=== PATIENT | female | born 1955 | race Caucasian/White ===

== ENCOUNTER 2016-07-05 07:34 | Inpatient (IN) | payer BC ==
[2016-06-07 08:09] VITALS: BMI 42.0
[2016-07-05] MEDS ORDERED: Sodium Chloride 0.9% 60 ML IV ONE (08:23)
[2016-07-05] MEDS ORDERED: Clindamycin 300 mg/2 ml Inj ONE (08:24)
[2016-07-05] MEDS ORDERED: (Novolin R) Insulin Human Regular 100 units/ml vial ONE ×2 (08:40→16:40)
[2016-07-05] MEDS ORDERED: (Novolin R) Insulin Human Regular 100 units/ml vial IV ONE (08:53)
[2016-07-05] MEDS ORDERED: Lidocaine Hydrochloride 5 ML INJ ONE (09:17)
[2016-07-05] MEDS ORDERED: Rocuronium 10 mg/ml (10 ml) ONE (09:17)
[2016-07-05] MEDS ORDERED: Midazolam 2 MG/2 ML VIAL ONE (09:17)
[2016-07-05] MEDS ORDERED: Succinylcholine Chloride 20 mg/ml Syr (5 ml) IV ONE (09:17)
[2016-07-05] MEDS ORDERED: Propofol 10 mg/ml Inj (20 ML) ONE (09:17)
[2016-07-05] MEDS ORDERED: Sodium Chloride 0.9% 1,000 ML IV ONE (09:18)
[2016-07-05] MEDS ORDERED: Sodium Chloride 0.9% 100 ML IV ONE (09:33)
[2016-07-05] MEDS ORDERED: Phenylephrine 10 mg/ml Inj ONE (10:05)
[2016-07-05] MEDS: Vancomycin 1 g Inj ONE ×4 (10:16→11:33)
[2016-07-05] MEDS: Bupivacaine Liposomal Inj 20 ml INFIL ONE ×2 (10:18→11:30)
[2016-07-05] MEDS ORDERED: Lactated Ringer's 1,000 ML IV ONE ×2 (10:19)
[2016-07-05] MEDS: Bacitracin 150,000 UNIT in Sodium Chloride 0.9% Irrig 3,000 ML IR SCH (11:30)
[2016-07-05] MEDS ORDERED: (Novolin 70/30) NPH/Regular 70/30 Units/ml 10 ml vial SC SCH (11:30)
[2016-07-05] MEDS ORDERED: Neostigmine Methylsulfate 3mg/3ml Syringe IV ONE (11:55)
[2016-07-05] MEDS ORDERED: HYDROmorphone 0.5 mg/0.5 ml ISec IVP PRN (12:09)
--- NOTE | 2016-07-05 12:44 | CP.PCM.HP ---
History of Present Illness - History of Present Illness History of Present Illness: 61F with right knee DJD failed conservative mgmt and elective for TKR. Medical clearance on chart, reviewed. PAT reviewed PMH: CAD s/p CABG 2006 and stenting 2006, 2008 DM, poorly controlled but HgA1c down to 11.8 from 13.9, BP in SDS 299, given insulin LBP, spinal stimulator Depression, anxiety asthma PE 2006, was on anticoag for 2-3 years, now only on aspirin 325mg daily PSH: spinal fusion cholecysectomy Present on Admission - Present on Admission Any Indicators Present on Admission: Yes History of DVT/PE: Yes Review of Systems - Review of Systems All systems: reviewed and no additional remarkable complaints except - Musculoskeletal Musculoskeletal: As Per HPI Past Patient History - Past Medical History & Family History Past Medical History?: Yes Pertinent Family History: sisters and brother CAD - Past Social History Smoking Status: Never Smoked - CARDIAC Hx Cardiac Disorders: Yes Hx Hypertension: Yes Other/Comment: HX: CARDIAC BYPASS,CABG, STENTSX4 - PULMONARY Hx Respiratory Disorders: Yes Hx Asthma: Yes (NEVER HOSPITALIZED) - NEUROLOGICAL Hx Neurological Disorder: No - HEENT Hx HEENT Problems: No - RENAL Hx Chronic Kidney Disease: No - ENDOCRINE/METABOLIC Hx Endocrine Disorders: Yes Hx Diabetes Mellitus Type 2: Yes - HEMATOLOGICAL/ONCOLOGICAL Hx Blood Disorders: No Hx Blood Transfusions: No Hx Blood Transfusion Reaction: No - INTEGUMENTARY Hx Dermatological Problems: No - MUSCULOSKELETAL/RHEUMATOLOGICAL Hx Musculoskeletal Disorders: Yes Hx Arthritis: Yes Hx Back Pain: Yes Hx Herniated Disk: Yes Hx Osteoarthritis: Yes Hx Osteoporosis: Yes Other/Comment: HX:" IMPLANTED SPINAL CORD STIMULATOR IMPLANTED LEFT BUTTOCKS - WIRES TO LOWER BACK" - GASTROINTESTINAL Hx Gastrointestinal Disorders: Yes Hx Gall Bladder Disease: Yes - GENITOURINARY/GYNECOLOGICAL Hx Genitourinary Disorders: Yes Other/Comment: HX: URINARY FREQUENCY - PSYCHIATRIC Hx Psychophysiologic Disorder: Yes Hx Anxiety: Yes Hx Depression: Yes Hx Schizophrenia: Yes Hx Substance Use: No - SURGICAL HISTORY Hx Surgeries: Yes Hx Angiogram: Yes Hx Cholecystectomy: Yes Hx Coronary Stent: Yes (X4) Hx Orthopedic Surgery: Yes - ANESTHESIA Hx Anesthesia: Yes Hx Anesthesia Reactions: Yes (VOMITING) Hx Malignant Hyperthermia: No Has any member of the family had a problem w/ anesthesia?: No Meds Allergies/Adverse Reactions: Allergies Allergy/AdvReac Type Severity Reaction Status Date / Time Penicillins Allergy Intermediate RASH Verified 06/07/16 08:13 morphine AdvReac Intermediate VOMITING Verified 06/08/16 09:33 Physical Exam - Constitutional Appears: Well, No Acute Distress - Head Exam Head Exam: ATRAUMATIC, NORMAL INSPECTION - ENT Exam ENT Exam: Mucous Membranes Moist - Respiratory Exam Respiratory Exam: NORMAL BREATHING PATTERN - Extremities Exam Additional comments: RLE: +DP/PT pulses, calves sfot NT neg homans +ROM ankle/toes, sensation intact imaging at outside facity, patient has disc - Neurological Exam Neurological exam: Alert, Oriented x3 - Psychiatric Exam Psychiatric exam: Normal Affect, Normal Mood - Skin Skin Exam: Dry, Intact, Normal Color, Warm Results - Vital Signs Recent Vital Signs: Last Vital Signs Temp Pulse 78 07/05/16 07:51 Resp BP Pulse Ox - Labs Labs: Laboratory Results - last 24 hr 07/05/16 09:58 Blood Type A POSITIVE Antibody Screen Negative Assessment & Plan (1) Primary osteoarthritis of right knee Assessment and Plan: NPO for TKR Status: Acute (2) Diabetes Assessment and Plan: cont home meds, medical consulation Status: Acute (3) CAD (coronary artery disease) Assessment and Plan: resume aspirin pod@1 Status: Chronic (4) HTN (hypertension) Assessment and Plan: cont home meds Status: Chronic (5) GERD (gastroesophageal reflux disease) Assessment and Plan: cont home meds Status: Chronic (6) Depression Assessment and Plan: cont home meds Status: Chronic Decision To Admit - Pt Status Changed To: Hospital Disposition Of: Inpatient - Admit Certification Admit to Inpatient:: After my assessment, the patient will require hospitalization for at least two midnights. This is because of the severity of symptoms shown, intensity of services needed, and/or the medical risk in this patient being treated as an outpatient. - InPatient: Physician Admission Certification:: After my assessment, the patient will require hospitalization for at least two midnights. This is because of the severity of symptoms shown, intensity of services needed, and/or the medical risk in this patient being treated as an outpatient. - . Bed Request Type: Telemetry (post op monitoring)
--- NOTE | 2016-07-05 13:33 | RAD ---
PROCEDURE: Right Knee Radiographs. HISTORY: s/p TKR, pt in pacu COMPARISON: None. FINDINGS: BONES: Status post total knee replacement. No osseous fracture. Expected postsurgical changes in soft tissues of distal femur infrapatellar region. Drainage catheter present. JOINTS: As above JOINT EFFUSION: None. OTHER FINDINGS: None. IMPRESSION: Status post right TKR .
[2016-07-05] MEDS ORDERED: Bupivacaine 0.5% Inj(30mL) ONE (13:52)
--- NOTE | 2016-07-05 14:12 | PCM.ANESB7 ---
Adductor Canal Block - Adductor Canal Block Date of Procedure: 07/05/16 Procedure Performed: Adductor Canal Block Right - Procedure Adductor Canal Block: The procedure was explained to the patient that it is for the post-operative pain management. Consent was obtained after a thorough discussion with the patient regarding the benefits and possible complications of local anesthetic adductor canal block of the femoral nerve. Standard monitors, as defined by the ASA, were applied to the patient. Time-out was held with the circulating nurse to confirm the appropriate block. After applying supplemental oxygen and administering IV Sedation as needed, the patient was placed in supine position with and the operative leg was flexed slightly at the knee and externally rotated as needed, and was kept anatomically stable. The mid-thigh of the RIGHT lower extremity was exposed. The ultrasound transducer was then applied transversely along the medial aspect, about midway down the thigh and the femoral artery and vein were identified in appropriate relation with the sartorius muscle. At this time, the femoral nerve was visualized lateral to the femoral artery within the canal. After thorough identification, this area area was prepped with Chloroprep solution three times and 1 % Lidocaine was injected subcutaneously for topical anesthesia. At this point, a #22 gauge Stimuplex 4-inch needle was inserted in-plane in a [id number] orientation, and advanced toward the saphenous nerve. Advancement was performed carefully under direct ultrasound visualization. . After negative aspiration, _5 cc of _0.5 % bupivicaine._was injected and this was followed with 15 cc of _0.5 % bupivicaine. Under ultrasound guidance the local anesthetics were observed spreading around the saphenous nerve. The needle was removed intact and sterile dressing was applied. The patient had stable vital signs, was conscious and in no apparent distress. The patient tolerated the adductor nerve block well with stable vital signs, no parasthesias, complaints, or sequalae. ,
--- NOTE | 2016-07-05 14:40 | CP.PCM.CON ---
History of Present Illness - History of Present Illness History of Present Illness: Medical Consult Note- Sally Christyenriqueta PGY2 Patient is a 61 year old female with PMHx of CAD s/p CABG, depression, DM, HTN, asthma, hx of PE, lulbar radiculopathy, and GERD. Patient is POD #0 s/p right total knee replacement surgery for DJD that failed outpatient treatment. The patient was seen and evaluated in the PACU at 1515. Patient was alert, awake and oriented x3 and answering questions appropriately. Patient currently denies pain and states that she was given pain medication recently. She states that she uses Albuterol inhaler at home about 3 times per day for her symptoms. Patient also uses insulin for control of her diabetes. Patient's vitals were within normal limits at time of exam. Currently denies fever, nausea, vomiting , chest pain, leg pain, headache, and shortness of breath. Medicine consult was placed for medical management of this patient. Will follow up blood work tomorrow morning. Will follow patient while in hospital. Thank you for this consult. PMHx: CAD s/p CABG, depression, DM, HTN, asthma, hx of PE in 2006, lulbar radiculopathy with spinal stimulator in place, and GERD Surgical Hx: spinal fusion, cholecystectomy Allergies: penicillin, morphine Review of Systems - Constitutional Constitutional: As Per HPI. absent: Headache - EENT Eyes: As Per HPI Ears: As Per HPI. absent: Dizziness Nose/Mouth/Throat: As Per HPI. absent: Sore Throat - Cardiovascular Cardiovascular: As Per HPI. absent: Chest Pain, Dyspnea, Lightheadedness, Palpitations - Respiratory Respiratory: As Per HPI. absent: Dyspnea - Gastrointestinal Gastrointestinal: As Per HPI. absent: Abdominal Pain, Nausea, Vomiting - Genitourinary Genitourinary: As Per HPI - Musculoskeletal Musculoskeletal: As Per HPI. absent: Back Pain, Radiating Pain into Limb - Integumentary Integumentary: As Per HPI - Neurological Neurological: As Per HPI. absent: Headaches, Paresthesias, Weakness - Psychiatric Psychiatric: As Per HPI. absent: Depression Past Patient History - Past Medical History & Family History Past Medical History?: Yes - Past Social History Smoking Status: Never Smoked - CARDIAC Hx Cardiac Disorders: Yes Hx Hypertension: Yes Other/Comment: HX: CARDIAC BYPASS,CABG, STENTSX4 - PULMONARY Hx Respiratory Disorders: Yes Hx Asthma: Yes (NEVER HOSPITALIZED) - NEUROLOGICAL Hx Neurological Disorder: No - HEENT Hx HEENT Problems: No - RENAL Hx Chronic Kidney Disease: No - ENDOCRINE/METABOLIC Hx Endocrine Disorders: Yes Hx Diabetes Mellitus Type 2: Yes - HEMATOLOGICAL/ONCOLOGICAL Hx Blood Disorders: No Hx Blood Transfusions: No Hx Blood Transfusion Reaction: No - INTEGUMENTARY Hx Dermatological Problems: No - MUSCULOSKELETAL/RHEUMATOLOGICAL Hx Musculoskeletal Disorders: Yes Hx Arthritis: Yes Hx Back Pain: Yes Hx Herniated Disk: Yes Hx Osteoarthritis: Yes Hx Osteoporosis: Yes Other/Comment: HX:" IMPLANTED SPINAL CORD STIMULATOR IMPLANTED LEFT BUTTOCKS - WIRES TO LOWER BACK" - GASTROINTESTINAL Hx Gastrointestinal Disorders: Yes Hx Gall Bladder Disease: Yes - GENITOURINARY/GYNECOLOGICAL Hx Genitourinary Disorders: Yes Other/Comment: HX: URINARY FREQUENCY - PSYCHIATRIC Hx Psychophysiologic Disorder: Yes Hx Anxiety: Yes Hx Depression: Yes Hx Schizophrenia: Yes Hx Substance Use: No - SURGICAL HISTORY Hx Surgeries: Yes Hx Angiogram: Yes Hx Cholecystectomy: Yes Hx Coronary Stent: Yes (X4) Hx Orthopedic Surgery: Yes - ANESTHESIA Hx Anesthesia: Yes Hx Anesthesia Reactions: Yes (VOMITING) Hx Malignant Hyperthermia: No Has any member of the family had a problem w/ anesthesia?: No Meds Allergies/Adverse Reactions: Allergies Allergy/AdvReac Type Severity Reaction Status Date / Time Penicillins Allergy Intermediate RASH Verified 06/07/16 08:13 morphine AdvReac Intermediate VOMITING Verified 06/08/16 09:33 - Medications Medications: Current Medications Acetaminophen (Tylenol 325mg Tab) 650 mg PO Q4 PRN PRN Reason: Fever 101 degrees fahrenheit Alprazolam (Xanax) 1 mg PO TID [facility] Amlodipine Besylate (Norvasc) 10 mg PO DAILY [facility] Aspirin (Ecotrin) 325 mg PO DAILY [facility] Benztropine Mesylate (Cogentin) 1 mg PO HS [facility] Docusate Sodium (Colace) 100 mg PO BID [facility] Enoxaparin Sodium (Lovenox) 30 mg SC Q12H [facility] Gabapentin (Neurontin) 800 mg PO TID [facility] Home Med (Ropinirole Hcl [Requip]) 1 mg PO HS [facility] Hydromorphone HCl (Dilaudid) 0.5 mg IVP Q10M PRN PRN Reason: Pain, severe (8-10) Last Admin: 07/05/16 13:37 Dose: 0.5 mg Hydromorphone HCl (Dilaudid) 0.5 mg IVP Q4H PRN PRN Reason: Pain, severe (8-10) Clindamycin Phosphate (Cleocin) 600 mg in 50 mls @ 102 mls/hr IVPB Q8H [facility] Stop: 07/05/16 23:30 Sodium Chloride (Sodium Chloride 0.9%) 1,000 mls @ 80 mls/hr IV .[id number] [facility] Insulin Aspart (Novolog) 15 unit SC TIDAC [facility] Insulin Glargine (Lantus) 50 unit SC HS [facility] Insulin Human Regular (Novolin R) 0 unit SC ACHS [facility] PRN Reason: Protocol Isosorbide Mononitrate (Imdur) 30 mg PO DAILY [facility] Metformin HCl (Glucophage) 500 mg PO BIDBS [facility] Metoprolol Succinate (Toprol Xl) 100 mg PO DAILY [facility] Mirtazapine (Remeron) 45 mg PO HS [facility] Oxycodone/Acetaminophen (Percocet 5/325 Mg Tab) 1 tab PO Q4 PRN PRN Reason: Pain, moderate (4-7) Stop: 07/08/16 12:27 Pantoprazole Sodium (Protonix Ec Tab) 40 mg PO DAILY [facility] Risperidone (Risperdal Tab) 3 mg PO DAILY [facility] Rosuvastatin Calcium (Crestor) 20 mg PO HS [facility] Venlafaxine HCl (Effexor Xr) 150 mg PO DAILY [facility] Physical Exam - Constitutional Appears: Non-toxic, No Acute Distress - Head Exam Head Exam: ATRAUMATIC, NORMOCEPHALIC - Eye Exam Eye Exam: EOMI, Normal appearance - ENT Exam ENT Exam: Mucous Membranes Moist - Neck Exam Neck exam: Positive for: Normal Inspection - Respiratory Exam Respiratory Exam: Clear to Auscultation Bilateral, NORMAL BREATHING PATTERN. absent: Accessory Muscle Use, Chest Wall Tenderness, Rales, Rhonchi, Wheezes, Respiratory Distress - Cardiovascular Exam Cardiovascular Exam: REGULAR RHYTHM, +S1, +S2. absent: Irregular Rhythm, Systolic Murmur - GI/Abdominal Exam GI & Abdominal Exam: Normal Bowel Sounds, Soft. absent: Distended, Firm, Guarding, Tenderness - Extremities Exam Extremities exam: Positive for: pedal edema. Negative for: tenderness Additional comments: 2+ pitting edema left lower leg Right leg wrapped in dressing, drain in place with serosangenous fluid - Neurological Exam Neurological exam: Alert, Oriented x3 - Psychiatric Exam Psychiatric exam: Normal Affect, Normal Mood - Skin Skin Exam: Dry, Normal Color, Warm Results - Vital Signs Recent Vital Signs: Last Vital Signs Temp 98.5 F 07/05/16 12:42 Pulse 68 07/05/16 14:10 Resp 15 07/05/16 14:10 BP 132/63 07/05/16 14:10 Pulse Ox 100 07/05/16 14:10 - Labs Labs: Laboratory Results - last 24 hr 07/05/16 09:58 Blood Type A POSITIVE Antibody Screen Negative Assessment & Plan - Assessment and Plan (Free Text) Assessment: 1. Diabetes Continue current home meds: * Lantus 50u SC HS * Metformin 500mg PO BID * Novolog 15u TIDAC * Gabapentin 800mg PO TID Accuchecks ISS f/u HgA1C Consistent carb diet 2. HTN Currently well controlled post-op Continue home meds: * Metoprolol 100mg PO daily * Norvasc 10mg PO daily * Imdur 30mg PO daily Monitor vitals q4h and adjust meds as needed 3. CAD with stents s/p CABG 2006 Continue home meds: * ASA 325mg PO daily * Crestor 20mg PO HS f/u lipid panel Most recent EKG showed NSR, normal EKG 4. Hx PE Was previously on therapeutic anticoagultion, but only taking ASA 325mg PO daily at this time Encourage OOB as soon as possible due to history Lovenox 30mg SC q12h 5. Asthma Duonebs 3ml INH q6h prn SOB Encourage incentive spirometer use SpO2 100% on NC 6. Hx Depression Continue home meds: * Remeron 45mg PO HS * Risperdal 3mg PO daily * Effexor Xr 150mg PO daily 7. GERD Protonix 40mg PO daily 8. Right knee DJD POD # 0 s/p TKR by Dr Rankin Management per ortho team Pain control PT evaluation 9. Prophylactic measures Protonix 40mg PO daily Lovenox 30mg SC q12h SCDs contraindicated on R leg due to recent procedure Medical management per Dr Chiu Will discuss with attending
[2016-07-05] MEDS ORDERED: Albuterol-Ipratrop 3 mg / 0.5 (3 ml) UD INH PRN (15:34)
[2016-07-05] MEDS ORDERED: HYDROmorphone 0.5 mg/0.5 ml ISec IVP ONE (15:58)
[2016-07-05 16:34] LABS: CHOLESTEROL 119 mg/dL (0-199)
[2016-07-05] MEDS: Clindamycin 600mg/50ml D5W 600 MG/50 ML VIAL IVPB SCH ×2 (17:30→22:35)
--- NOTE | 2016-07-05 18:22 | OP ---
PROCEDURE DATE: 07/05/2016 PREOPERATIVE DIAGNOSIS: Right knee degenerative joint disease. POSTOPERATIVE DIAGNOSIS: Right knee degenerative joint disease. PROCEDURE: Right total knee arthroplasty. SURGEON: Yovany Rankin M.D. SCHOOL PHOTOGRAPHER: Dr. Rankin was assisted Rekha Singh. Ms Gonzalo PA-C was present and scrubbed throughout the case and assisted in preoperative patient positioning, retraction throughout the case , as well as wound closure. COMPLICATIONS: None. ESTIMATED BLOOD LOSS: 200 mL. TOURNIQUET TIME: 85 minutes at 300 mmHg. IMPLANT: [employer] Vanguard total knee system. INDICATIONS FOR PROCEDURE: This is a 61-year-old female who presented with longstanding right knee p ain. Clinical and radiographic examination was consistent with degenerative joint disease of the rig ht knee. After a period of failed nonsurgical management, recommendations were for right total knee arthroplasty. The risks, benefits, and alternatives of procedure were discussed with the patient and informed consent was obtained. OPERATIVE PROCEDURE: After surgical site was found and verified in preoperative holding area, the pa tient was taken to the operating room and placed supine on the operating table. After administration of general anesthesia, patient received 900 mg of clindamycin IV. A Brown catheter was inserted. T ourniquet was placed about the right thigh. Care was taken to make sure all bony prominences and ner ves were well padded and protected and the right lower extremity was prepped and draped in usual ster ile fashion. Right lower extremity was exsanguinated using Esmarch and the tourniquet was inflated. Approximately 10 cm longitudinal incision was made. Soft tissue was dissected sharply knee joint. Medial parapatellar arthrotomy was performed. The knee joint was exposed. ACL, PCL, medial and late ral menisci as well as anterior fat pad were all resected. Once the knee joint was adequately expose d, a step drill was used to drill into the medullary canal of the distal femur and the intramedullary distal femoral cutting guide was inserted. Distal femoral resection was performed. Femoral compone nt was sized and the 4-in-1 cut block was pinned into place. Our anterior and posterior resections w ere performed and the box cut was done on our femur. Attention was directed to the tibia. [facility] tibial cutting guide was pinned into place. Satisfied with our alignment, our tibial resection was performed. Next, our flexion, extension gaps were checked. The patient was noted to be stable and well balanced with varus valgus stress with full extension and flexion. At this point, our tibia l component was sized and the medullary canal of the proximal tibia was reamed and punched with the c ruciate punch. With the trial tibia, trial femur, and trial bearing in place, the knee was taken thr ough a range of motion and was noted to have full extension and flexion and stable throughout. Next, our attention was directed to the patella. Thickness of patella was measured and our patellar resec tion was performed. Patella button was sized and the holes for patella button were then drilled. Tr ial patella was inserted and the knee was taken through a range of motion. The patient was noted to have some slight lateral tilt and this was corrected by performing a lateral retinacular release. At this point, all the trial components were removed. The knee joint was pulse lavaged with antibiotic saline solution. The bony surfaces were dried and the actual tibial, femoral and patellar component s were cemented into place. Care was taken to remove all excess cement. Once the cement hardened, t he wound was inspected for any debris and the tourniquet was deflated. Any obvious bleeding was caut erized. At this point, the knee joint was pulse lavaged with antibiotic saline solution and dried. Actual bearing was inserted and locked into place with a cross pin. A medium Hemovac was inserted an d arthrotomy was closed using #1 Vicryl suture. Subcutaneous tissue was closed using 0 Vicryl and 2- 0 Vicryl suture and the skin was closed using dannie. Sterile dressing was applied. The patient wa s awakened from the procedure, taken to recovery room in stable condition. Yovany Rankin MD cc: [id number] TT: 07/05/2016 18:22:17 [email or web address]
[2016-07-05] MEDS: HYDROmorphone 0.5 mg/0.5 ml ISec IVP PRN (19:05)
[2016-07-05] MEDS: Oxycodone/Acetaminophen 5/325 mg Tab PO PRN (21:35)
[2016-07-05] MEDS ORDERED: ROPINIROLE HCL 1 MG PO SCH (22:00)
[2016-07-05] MEDS ORDERED: (Lantus) Insulin Glargine, Recombinant SC SCH (22:00)
[2016-07-05] MEDS: (Novolin R) Insulin Human Regular 100 units/ml vial SC SCH (22:19)
[2016-07-06] MEDS: HYDROmorphone 0.5 mg/0.5 ml ISec IVP PRN (00:38)
[2016-07-06 07:48] LABS: HEMATOCRIT 31.3 % (34.0-47.0); MEAN CELL VOLUME 89.6 fL (81.0-99.0); MEAN CORPUSCULAR HEMOGLOBIN 28.5 pg (27.0-31.0); MEAN CORPUSCULAR HGB CONC 31.9 g/dL (33.0-37.0); MEAN PLATELET VOLUME 9.8 fL (7.2-11.7); RED CELL DISTRIBUTION WIDTH 15.9 % (11.5-14.5); WHITE BLOOD COUNT 9.7 K/uL (4.8-10.8)
[2016-07-06] MEDS ORDERED: Metoprolol Succinate 100 mg XL Tab PO SCH (10:00)
[2016-07-06] MEDS ORDERED: Venlafaxine 150 mg ER Cap PO SCH (10:00)
[2016-07-06] MEDS ORDERED: Pantoprazole 40 mg EC Tab PO SCH (10:00)
[2016-07-06] MEDS ORDERED: Aspirin 325 mg EC Tablets PO SCH (10:00)
[2016-07-06] MEDS ORDERED: Naloxone 0.4 mg/ml Inj (Adult) ONE (17:35)
[2016-07-06 20:00] LABS: BLOOD UREA NITROGEN 11 mg/dL (7-17); GFR AFRICAN-AMERICAN > 60; GLUCOSE,RANDOM 237 mg/dL (65-105); SODIUM 133 mmol/L (132-148)
[2016-07-06 20:01] LABS: CARBON DIOXIDE 26 mmol/L (22-30); CHLORIDE 100 mmol/L (98-107)
[2016-07-06] MEDS: (Novolin R) Insulin Human Regular 100 units/ml vial SC SCH (22:32)
[2016-07-06] MEDS: Enoxaparin 30 mg Syringe SC SCH (22:33)
[2016-07-06] MEDS ORDERED: Sodium Chloride 0.9% 500 ML IV ONE (22:41)
[2016-07-06 23:08] VITALS: RESP 20
[2016-07-07 01:51] LABS: RBC URINE < 1 /hpf (0-3); URINE BILIRUBIN NEGATIVE (NEGATIVE); URINE BLOOD NEGATIVE (NEGATIVE); URINE COLOR Yellow (YELLOW); URINE GLUCOSE (UA) 3+ mg/dL (Normal); URINE KETONE NEGATIVE (NEGATIVE); URINE LEUKOCYTE ESTERASE NEG Leu/uL (Negative); URINE PROTEIN NEGATIVE (NEGATIVE); URINE UROBILINOGEN NORMAL mg/dL (0.2-1.0); WBC URINE 1 /hpf (0-5)
[2016-07-07] MEDS: Sodium Chloride 0.9% 1,000 ML IV SCH ×2 (02:00→05:43)
[2016-07-07] MEDS: HYDROmorphone 0.5 mg/0.5 ml ISec IVP SCH ×2 (05:42)
[2016-07-07 06:48] LABS: CHLORIDE 100 mmol/L (98-107); SODIUM 134 mmol/L (132-148)
[2016-07-07 06:49] LABS: POTASSIUM 3.9 mmol/L (3.6-5.2)
[2016-07-07 06:51] LABS: GFR AFRICAN-AMERICAN > 60
[2016-07-07 06:52] LABS: BLOOD UREA NITROGEN 9 mg/dL (7-17); CARBON DIOXIDE 29 mmol/L (22-30); GLUCOSE,RANDOM 243 mg/dL (65-105)
[2016-07-07 06:59] LABS: HEMATOCRIT 29.2 % (34.0-47.0); MEAN CELL VOLUME 88.4 fL (81.0-99.0); MEAN CORPUSCULAR HEMOGLOBIN 28.7 pg (27.0-31.0); MEAN CORPUSCULAR HGB CONC 32.5 g/dL (33.0-37.0); MEAN PLATELET VOLUME 8.7 fL (7.2-11.7); RED CELL DISTRIBUTION WIDTH 15.7 % (11.5-14.5); WHITE BLOOD COUNT 14.3 K/uL (4.8-10.8)
--- NOTE | 2016-07-07 07:35 | CP.PCM.PN ---
<GriseldaDalia - Last Filed: 07/07/16 16:50> Subjective - Date & Time of Evaluation Date of Evaluation: 07/07/16 Time of Evaluation: 09:00 - Subjective Subjective: PGY1 Medicine note for Dr. Chiu Pt seen and examined at bedside. Nursing reports no adverse events overnight. Today patient is alert and energized. She states that she feels much better today and that her pain is well managed with the medication. She has had flatus but has not had a BM since the surgery. She is planning to go to subacute rehab at discharge for physical therapy. Pt denies fever, chills, dizziness, headache , chest pain, shortness of breath, nausea, vomiting, abdominal pain, bowel/ bladder pain. Objective - Vital Signs/Intake and Output Vital Signs (last 24 hours): Temp Pulse Resp BP Pulse Ox 99.2 F 86 20 134/72 96 07/07/16 04:30 07/07/16 04:30 07/07/16 04:30 07/07/16 04:30 07/07/16 04:30 Intake and Output: 07/07/16 07/07/16 06:59 18:59 Intake Total 2080 Output Total 810 Balance 1270 - Medications Medications: Current Medications Acetaminophen (Tylenol 325mg Tab) 650 mg PO Q4 PRN PRN Reason: Fever 101 degrees fahrenheit Albuterol/Ipratropium (Duoneb 3 Mg/0.5 Mg (3 Ml) Ud) 3 ml INH RQ6 PRN PRN Reason: Shortness of Breath Last Admin: 07/05/16 16:30 Dose: 3 ml Alprazolam (Xanax) 0.5 mg PO Q8 PRN PRN Reason: Anxiety Amlodipine Besylate (Norvasc) 10 mg PO DAILY [facility] Aspirin (Ecotrin) 325 mg PO DAILY [facility] Benztropine Mesylate (Cogentin) 1 mg PO HS [facility] Last Admin: 07/05/16 22:35 Dose: 1 mg Docusate Sodium (Colace) 100 mg PO BID [facility] Last Admin: 07/05/16 21:35 Dose: 100 mg Enoxaparin Sodium (Lovenox) 30 mg SC Q12H [facility] Last Admin: 07/06/16 22:33 Dose: 30 mg Gabapentin (Neurontin) 800 mg PO TID [facility] Last Admin: 07/05/16 22:36 Dose: 800 mg Home Med (Ropinirole Hcl [Requip]) 1 mg PO HS [facility] Hydromorphone HCl (Dilaudid) 0.5 mg IVP Q6 [facility] Last Admin: 07/07/16 05:42 Dose: 0.5 mg Sodium Chloride (Sodium Chloride 0.9%) 1,000 mls @ 80 mls/hr IV .[id number] [facility] Last Admin: 07/07/16 05:43 Dose: 80 mls/hr Insulin Aspart (Novolog) 15 unit SC TIDAC [facility] Insulin Glargine (Lantus) 50 unit SC [facility] Last Admin: 07/05/16 22:22 Dose: 50 units Insulin Human Regular (Novolin R) 0 unit SC ACHS [facility] PRN Reason: Protocol Last Admin: 07/06/16 22:32 Dose: Not Given Isosorbide Mononitrate (Imdur) 30 mg PO DAILY [facility] Metformin HCl (Glucophage) 500 mg PO BIDBS [facility] Metoprolol Succinate (Toprol Xl) 100 mg PO DAILY [facility] Mirtazapine (Remeron) 45 mg PO [facility] Last Admin: 07/06/16 22:32 Dose: Not Given Oxycodone/Acetaminophen (Percocet 5/325 Mg Tab) 1 tab PO Q4 PRN PRN Reason: Pain, moderate (4-7) Stop: 07/08/16 12:27 Last Admin: 07/05/16 21:35 Dose: 1 tab Pantoprazole Sodium (Protonix Ec Tab) 40 mg PO DAILY [facility] Risperidone (Risperdal Tab) 3 mg PO DAILY [facility] Rosuvastatin Calcium (Crestor) 20 mg PO [facility] Last Admin: 07/06/16 22:00 Dose: Not Given Venlafaxine HCl (Effexor Xr) 150 mg PO DAILY [facility] - Labs Labs: 07/07/16 06:16 07/07/16 06:16 - Constitutional Appears: Non-toxic, No Acute Distress - Head Exam Head Exam: NORMAL INSPECTION - Eye Exam Eye Exam: Normal appearance. absent: Conjunctival injection, Scleral icterus - ENT Exam ENT Exam: Mucous Membranes Moist - Neck Exam Neck Exam: Normal Inspection. absent: Tenderness - Respiratory Exam Respiratory Exam: Clear to Ausculation Bilateral, NORMAL BREATHING PATTERN. absent: Accessory Muscle Use, Rales, Rhonchi, Wheezes, Respiratory Distress - Cardiovascular Exam Cardiovascular Exam: REGULAR RHYTHM, RRR, +S1, +S2 - GI/Abdominal Exam GI & Abdominal Exam: Soft, Normal Bowel Sounds. absent: Tenderness - Extremities Exam Additional comments: RLE in immobilizer - Back Exam Back Exam: NORMAL INSPECTION. absent: rash noted - Neurological Exam Neurological Exam: Alert, Awake, Oriented x3 - Psychiatric Exam Psychiatric exam: Normal Affect, Normal Mood - Skin Skin Exam: Dry, Intact, Normal Color, Warm Assessment and Plan - Assessment and Plan (Free Text) Plan: 1. Diabetes Continue current home meds: * Lantus 50u SC HS * Metformin 500mg PO BID * Novolog 15u TIDAC * Gabapentin 800mg PO TID Accuchecks ISS Consistent carb diet 2. HTN Currently well controlled post-op Continue home meds: * Metoprolol 100mg PO daily * Norvasc 10mg PO daily * Imdur 30mg PO daily Monitor vitals q4h and adjust meds as needed 3. CAD with stents s/p CABG 2006 Continue home meds: * ASA 325mg PO daily * Crestor 20mg PO HS Most recent EKG showed NSR, normal EKG 4. Hx PE Was previously on therapeutic anticoagultion, but only taking ASA 325mg PO daily at this time Encourage OOB as soon as possible due to history Lovenox 30mg SC q12h 5. Asthma Duonebs 3ml INH q6h prn SOB Encourage incentive spirometer use SpO2 100% on NC 6. Hx Depression Continue home meds: * Remeron 45mg PO HS * Risperdal 3mg PO daily * Effexor Xr 150mg PO daily 7. GERD Protonix 40mg PO daily 8. Right knee DJD POD #2 s/p TKR by Dr Rankin Management per ortho team Pain control PT evaluation 9. Prophylactic measures Protonix 40mg PO daily Lovenox 30mg SC q12h SCDs contraindicated on R leg due to recent procedure Medical management per Dr Chiu Will discuss with attending <Juan Luis Chiu Jr. - Last Filed: 07/08/16 09:42> Objective - Vital Signs/Intake and Output Vital Signs (last 24 hours): Temp Pulse Resp BP Pulse Ox 100 F H 95 H 20 119/73 95 07/07/16 17:00 07/07/16 17:00 07/07/16 17:00 07/07/16 17:00 07/07/16 17:00 - Labs Labs: 07/07/16 06:16 07/07/16 06:16 Attending/Attestation - Attestation I have personally seen and examined this patient.: Yes I have fully participated in the care of the patient.: Yes I have reviewed all pertinent clinical information, including history, physical exam and plan: Yes Notes (Text): 07/08/16 09:41 Agree with resident note findings and plan of care
[2016-07-07] MEDS: Oxycodone/Acetaminophen 5/325 mg Tab PO PRN (07:45)
[2016-07-07] MEDS ORDERED: HYDROmorphone 0.5 mg/0.5 ml ISec IVP PRN (07:59)
--- NOTE | 2016-07-07 08:00 | CP.PCM.PN ---
Subjective - Date & Time of Evaluation Date of Evaluation: 07/07/16 Time of Evaluation: 08:05 - Subjective Subjective: Patient much improved from last night. No longer sedated. She says she has pain in her knee, but says it is controlled. Denies CP/SOB/dizziness/palpitations, denies nausea/vomiting, numbness tingling. Objective - Vital Signs/Intake and Output Vital Signs (last 24 hours): Temp Pulse Resp BP Pulse Ox 99.2 F 86 20 134/72 96 07/07/16 04:30 07/07/16 04:30 07/07/16 04:30 07/07/16 04:30 07/07/16 04:30 Intake and Output: 07/07/16 07/07/16 06:59 18:59 Intake Total 2080 Output Total 810 Balance 1270 - Medications Medications: Current Medications Acetaminophen (Tylenol 325mg Tab) 650 mg PO Q4 PRN PRN Reason: Fever 101 degrees fahrenheit Albuterol/Ipratropium (Duoneb 3 Mg/0.5 Mg (3 Ml) Ud) 3 ml INH RQ6 PRN PRN Reason: Shortness of Breath Last Admin: 07/05/16 16:30 Dose: 3 ml Amlodipine Besylate (Norvasc) 10 mg PO DAILY [facility] Aspirin (Ecotrin) 325 mg PO DAILY [facility] Benztropine Mesylate (Cogentin) 1 mg PO HS [facility] Last Admin: 07/05/16 22:35 Dose: 1 mg Docusate Sodium (Colace) 100 mg PO BID [facility] Last Admin: 07/05/16 21:35 Dose: 100 mg Enoxaparin Sodium (Lovenox) 30 mg SC Q12H [facility] Last Admin: 07/06/16 22:33 Dose: 30 mg Gabapentin (Neurontin) 800 mg PO TID [facility] Last Admin: 07/05/16 22:36 Dose: 800 mg Home Med (Ropinirole Hcl [Requip]) 1 mg PO HS [facility] Hydromorphone HCl (Dilaudid) 0.5 mg IVP Q6 PRN PRN Reason: Pain, moderate (4-7) Insulin Aspart (Novolog) 15 unit SC TIDAC [facility] Insulin Glargine (Lantus) 50 unit SC [facility] Last Admin: 07/05/16 22:22 Dose: 50 units Insulin Human Regular (Novolin R) 0 unit SC ACHS [facility] PRN Reason: Protocol Last Admin: 07/06/16 22:32 Dose: Not Given Isosorbide Mononitrate (Imdur) 30 mg PO DAILY [facility] Metformin HCl (Glucophage) 500 mg PO BIDBS [facility] Metoprolol Succinate (Toprol Xl) 100 mg PO DAILY [facility] Mirtazapine (Remeron) 45 mg PO HS [facility] Last Admin: 07/06/16 22:32 Dose: Not Given Oxycodone/Acetaminophen (Percocet 5/325 Mg Tab) 1 tab PO Q4 PRN PRN Reason: Pain, moderate (4-7) Stop: 07/08/16 12:27 Last Admin: 07/07/16 07:45 Dose: 1 tab Pantoprazole Sodium (Protonix Ec Tab) 40 mg PO DAILY [facility] Risperidone (Risperdal Tab) 3 mg PO DAILY [facility] Rosuvastatin Calcium (Crestor) 20 mg PO HS [facility] Last Admin: 07/06/16 22:00 Dose: Not Given Venlafaxine HCl (Effexor Xr) 150 mg PO DAILY [facility] - Labs Labs: 07/07/16 06:16 07/07/16 06:16 - Constitutional Appears: Well, No Acute Distress - Extremities Exam Additional comments: RLE: hemovac pulled, incision intact, scant drainage, no erythema. Mild leg swelling, calf mildly tender. +DP/PT pulses, sensation intact - Neurological Exam Neurological Exam: Alert, Awake, Oriented x3 - Psychiatric Exam Psychiatric exam: Normal Affect, Normal Mood - Skin Skin Exam: Dry, Intact, Normal Color, Warm Assessment and Plan (1) Primary osteoarthritis of right knee Assessment & Plan: POD#2 s/p right TKR -dopplers r/o DVT (pt hx PE) -WBC elevated, likely reactive, CXR reading pending, urinalysis neg for infection, Tmax 102 but 99 since -VTE proph on lovenox -sedation resolved, much improved from yesterday -d/c planning to care [place] -d/w Dr. Rankin, agrees with above Status: Acute (2) Diabetes Assessment & Plan: cont home meds Status: Acute (3) CAD (coronary artery disease) Status: Chronic (4) HTN (hypertension) Status: Chronic (5) GERD (gastroesophageal reflux disease) Status: Chronic (6) Depression Status: Chronic (7) Acute blood loss anemia Assessment & Plan: hemodynamically stable Status: Acute
[2016-07-07] MEDS ORDERED: Oxycodone/Acetaminophen 5/325 mg Tab PO PRN (08:08)
[2016-07-07] MEDS: (Novolin R) Insulin Human Regular 100 units/ml vial SC SCH ×3 (08:26→18:07)
[2016-07-07] MEDS: (Novolog) Insulin Aspart, Recombinant 100 u/ml 10 ml vial SC SCH ×3 (08:27→18:06)
[2016-07-07] MEDS: Enoxaparin 30 mg Syringe SC SCH (10:00)
--- NOTE | 2016-07-07 12:54 | RAD ---
HISTORY: AMS COMPARISON: 06/07/2016 FINDINGS: LUNGS: No active pulmonary disease. PLEURA: No significant pleural effusion identified, no pneumothorax apparent. CARDIOVASCULAR: Sternotomy wires are noted. OSSEOUS STRUCTURES: No significant abnormalities. VISUALIZED UPPER ABDOMEN: Normal. OTHER FINDINGS: Spinal stimulator. IMPRESSION: No active disease.
--- NOTE | 2016-07-07 14:32 | CP.PCM.DIS ---
Provider - Provider Date of Admission: 07/05/16 07:34 Attending physician: Yovany Rankin MD Consults: Dr. Chiu Time Spent in preparation of Discharge (in minutes): 5 Diagnosis - Discharge Diagnosis (1) Primary osteoarthritis of right knee Status: Acute (2) Diabetes Status: Acute (3) CAD (coronary artery disease) Status: Chronic (4) HTN (hypertension) Status: Chronic (5) GERD (gastroesophageal reflux disease) Status: Chronic (6) Depression Status: Chronic (7) Acute blood loss anemia Status: Acute Hospital Course - Lab Results Lab Results: Most Recent Lab Values WBC 14.3 K/uL (4.8-10.8) H 07/07/16 06:16 RBC 3.31 Mil/uL (3.80-5.20) L 07/07/16 06:16 Hgb 9.5 g/dL (11.0-16.0) L 07/07/16 06:16 Hct 29.2 % (34.0-47.0) L 07/07/16 06:16 MCV 88.4 fL (81.0-99.0) 07/07/16 06:16 MCH 28.7 pg (27.0-31.0) 07/07/16 06:16 MCHC 32.5 g/dL (33.0-37.0) L 07/07/16 06:16 RDW 15.7 % (11.5-14.5) H 07/07/16 06:16 Plt Count 277 K/uL (130-400) D 07/07/16 06:16 MPV 8.7 fL (7.2-11.7) 07/07/16 06:16 Sodium 134 mmol/L (132-148) 07/07/16 06:16 Potassium 3.9 mmol/L (3.6-5.2) 07/07/16 06:16 Chloride 100 mmol/L (98-107) 07/07/16 06:16 Carbon Dioxide 29 mmol/L (22-30) 07/07/16 06:16 Anion Gap 9 (10-20) L 07/07/16 06:16 BUN 9 mg/dL (7-17) 07/07/16 06:16 Creatinine 0.6 MG/DL (0.7-1.2) L 07/07/16 06:16 Est GFR ( Amer) > 60 07/07/16 06:16 Est GFR (Non-Af Amer) > 60 07/07/16 06:16 Random Glucose 243 mg/dL (65-105) H 07/07/16 06:16 Hemoglobin A1c 10.9 % (4.2-6.5) H 07/06/16 04:00 Calcium 8.0 mg/dl (8.6-10.4) L 07/07/16 06:16 Triglycerides 98 mg/dL (0-149) 07/05/16 16:20 Cholesterol 119 mg/dL (0-199) 07/05/16 16:20 LDL Cholesterol Direct 71 mg/dL (0-129) 07/05/16 16:20 HDL Cholesterol 28 mg/dL (30-70) L 07/05/16 16:20 Urine Color Yellow (YELLOW) 07/06/16 23:15 Urine Clarity Clear (Clear) 07/06/16 23:15 Urine pH 6.0 (5.0-8.0) 07/06/16 23:15 Ur Specific [place] 1.015 (1.003-1.030) 07/06/16 23:15 Urine Protein Negative mg/dL (NEGATIVE) 07/06/16 23:15 Urine Glucose (UA) 3+ mg/dL (Normal) H 07/06/16 23:15 Urine Ketones Negative mg/dL (NEGATIVE) 07/06/16 23:15 Urine Blood Negative (NEGATIVE) 07/06/16 23:15 Urine Nitrate Negative (NEGATIVE) 07/06/16 23:15 Urine Bilirubin Negative (NEGATIVE) 07/06/16 23:15 Urine Urobilinogen Normal mg/dL (0.2-1.0) 07/06/16 23:15 Ur Leukocyte Esterase Neg Andrea/uL (Negative) 07/06/16 23:15 Urine WBC (Auto) 1 /hpf (0-5) 07/06/16 23:15 Urine RBC (Auto) < 1 /hpf (0-3) 07/06/16 23:15 Ur Squamous Epith Cells < 1 /hpf (0-5) 07/06/16 23:15 Blood Type A POSITIVE 07/05/16 09:58 Antibody Screen Negative 07/05/16 09:58 - Hospital Course Hospital Course: 61F with PMH: HTN, DM, CAD, depression with right knee osteoarthritis failed conservative management and elected for TKR. Postoperative imaging demonstrated acceptable position of prosthesis. Medical consultation was requested for post operative medical management. HTN controlled throughout admission, DM at baseline. Bilateral lower extremity venous dopplers were ordered for leg swelling, and were negative for DVT on post operative day #3. Patients post operative course was complicated by acute blood loss anemia, hemodynamically stable and well tolerated, no treatment needed. Patient tolerated PT/OT well. Patient received VTE prophylaxis in the form of lovenox 30mg SQ q12h and venodynes. PT was discharged to [facility], and continued on home medications as well as the lovenox. Patient was WBAT LLE, ambulating with walker, and given instructions for daily dressing changes and to f/u Dr. Rankin within 2 weeks. Discharge Exam - Head Exam Head Exam: ATRAUMATIC, NORMOCEPHALIC Discharge Plan - Follow Up Plan Condition: GOOD Disposition: REHAB FACILITY/REHAB UNIT Instructions: Pain Management After Surgery (DC), Joint Replacement Surgery (DC ), Knee Replacement (DC) Referrals: Yovany Rankin MD [Staff Provider] - 1 Week (call for follow up in 10-14 days Dressing change right knee daily knee immobilizer at night, may remove during the day WBAT RLE)
--- NOTE | 2016-07-07 15:49 | VASCLAB ---
PROCEDURE: Lower Extremity Venous Duplex Exam. HISTORY: swelling, r/o DVT PRIORS: None. TECHNIQUE: Bilateral common femoral, femoral, popliteal and posterior tibial, peroneal and great saphenous veins were evaluated. Flow was assessed with color Doppler, compressibility, assessment of phasic flow and augmentation response. Report prepared by Bridger Nieto, CAMILO, RVT FINDINGS: RIGHT: 1. Common Femoral Vein: 1.1. Compressibility - Fully compressible: Thrombus - None : Flow - Phasic: Augmentation -Normal: Reflux - None. 2. Femoral Vein: 2.1. Compressibility - Fully compressible: Thrombus - None : Flow - Phasic: Augmentation -Normal: Reflux - None. 3. Popliteal Vein: 3.1. Compressibility - Fully compressible: Thrombus - None : Flow - Phasic: Augmentation -Normal: Reflux - None. 4. Posterior Tibial Vein: 4.1. Compressibility - Fully compressible: Thrombus - None: Flow - Phasic: Augmentation -Normal: Reflux - None. 5. Peroneal Vein: 5.1. Compressibility - Fully compressible: Thrombus - None: Flow - Phasic: Augmentation -Normal: Reflux - None. 6. Great Saphenous Vein: 6.1. Compressibility - Fully compressible: Thrombus - None: Flow - Phasic: Augmentation - Normal: Reflux - None. LEFT: 1. Common Femoral Vein: 1.1. Compressibility - Fully compressible: Thrombus - None: Flow - Phasic: Augmentation -Normal: Reflux - None. 2. Femoral Vein: 2.1. Compressibility - Fully compressible: Thrombus - None: Flow - Phasic: Augmentation -Normal: Reflux - None. 3. Popliteal Vein: 3.1. Compressibility - Fully compressible: Thrombus - None : Flow - Phasic: Augmentation -Normal: Reflux - None. 4. Posterior Tibial Vein: 4.1. Compressibility - Fully compressible: Thrombus - None: Flow - Phasic: Augmentation -Normal: Reflux - None. 5. Peroneal Vein: 5.1. Compressibility - Fully compressible: Thrombus - None: Flow - Phasic: Augmentation -Normal: Reflux - None. 6. Great Saphenous Vein: 6.1. Compressibility - Fully compressible: Thrombus - None: Flow - Phasic: Augmentation - Normal: Reflux - None. OTHER FINDINGS: Right: None significant. Left: None significant. IMPRESSION: Right: No evidence of deep or superficial vein thrombosis of the right lower extremity. Normal valve function noted of the right side. Left: No evidence of deep or superficial vein thrombosis of the left lower extremity. Normal valve function noted of the left side.
[2016-07-07 18:35] VITALS: BP 119/73; PULSE 95; TEMP 100; O2SAT 95
--- NOTE | 2016-08-08 08:01 | CARD ---
APPROVED REPORT EKG Measurement Heart [id number] <Conclusion> Normal sinus rhythm Voltage criteria for left ventricular hypertrophy Nonspecific T wave abnormality Abnormal ECG
== END 2016-07-07 18:05 | DRG 470 ==
LOC: C.9S 07:34 → C.6T 19:28
PROVIDERS: ADMIT Orthopaedic Surgery; ATTEND Orthopaedic Surgery
PROC: 0SRC0J9 Replacement of Right Knee Joint with Synthetic Substitute, Cemented, Open Approach (ICD-10-PCS; principal; 2016-07-05 09:18)
DX: M17.11 Unilateral primary osteoarthritis, right knee (principal); D62 Acute posthemorrhagic anemia; I10 Essential (primary) hypertension; I25.10 Atherosclerotic heart disease of native coronary artery without angina pectoris; Z86.711 Personal history of pulmonary embolism; E11.9 Type 2 diabetes mellitus without complications; Z98.1 Arthrodesis status; Z95.5 Presence of coronary angioplasty implant and graft; Z95.1 Presence of aortocoronary bypass graft; J45.909 Unspecified asthma, uncomplicated; F32.89 Other specified depressive episodes; F41.9 Anxiety disorder, unspecified